=== PATIENT | female | born 1965 | race Caucasian/White ===

== ENCOUNTER 2021-08-15 19:20 | Emergency (ER) | payer OTHER, MEDICAID, SELFPAY ==
[2021-08-15 19:33] VITALS: BP 185/89; PULSE 89; RESP 20; TEMP 36.4; O2SAT 95; BMI 47.5
--- NOTE | 2021-08-15 19:40 | DI.RAD.S_ITS ---
PROCEDURE: XR CHEST 1V INDICATIONS: chest pain TECHNIQUE: One view of the chest was acquired. COMPARISON: None. FINDINGS: Surgical changes and devices: None. Lungs and pleura: Mild patchy bilateral perihilar and basilar airspace opacity.. No pleural effusions or pneumothorax. Mediastinum: Mediastinal contours appear normal. Heart size is normal. Bones and chest wall: No suspicious bony lesions. Overlying soft tissues appear unremarkable. IMPRESSION: Mild atypical pneumonia. Dictated by: Thais Robles M.D. on 08/15/2021 at 20:07 Approved by: Thais Robles M.D. on 08/15/2021 at 20:07
[2021-08-15 19:59] LABS: Add Manual Diff / Slide Review NO; Basophils Absolute Auto 100 /uL (0-100); Eosinophils Absolute Auto 100 /uL (0-450); Eosinophils Percent Auto 1.2 % (2-4); Hematocrit 42.9 % (36-46); Hemoglobin 14.4 g/dL (12.0-16.0); Lymphocytes Absolute Auto 2100 /uL (1100-4500); Mean Corpuscular HGB Conc 33.5 % (30-36); Mean Corpuscular Hemoglobin 28.9 PG (26-34); Mean Corpuscular Volume 86.2 fL (80-100); Monocytes Absolute Auto 500 /uL (0-900); Monocytes Percent Auto 4.6 % (3-14); Neutrophils Absolute Auto 7600 /uL (1500-7000); Neutrophils Percent Auto 73.2 % (50-75); Platelet Count 249 X10^3/uL (150-400); Red Blood Cell Count 4.98 X10^6/uL (4.0-5.2); Red Cell Distribution Width 13.4 % (11.6-14.8); White Blood Cell Count 10.4 X10^3/uL (4.5-11.0)
--- NOTE | 2021-08-15 20:02 | DI.CT.S_ITS ---
PROCEDURE: CT ANGIO CHEST INDICATIONS: chest and back pain eval for TAD TECHNIQUE: After the administration of intravenous contrast, 2.5 mm thick sections acquired from the lung apices to the posterior lung bases. Maximum intensity projection (MIP) oblique sagittal reformats were then acquired parallel to the aortic arch. For radiation dose reduction, the following was used: automated exposure control. COMPARISON: None. FINDINGS: Image quality: Excellent. Aorta and pulmonary arteries: Aorta and great vessels are normal in size. No mural irregularity or contrast extravasation to suggest aortic injury. No filling defects within the pulmonary arteries to indicate pulmonary embolus. Mediastinum: No hematomas. Heart size is normal. No pericardial effusion. No mediastinal or hilar adenopathy by size criteria. Central pulmonary arteries are normal in size. Esophagus is normal in caliber. No hiatal hernia. Lungs and pleura: No acute airspace opacities. No pleural effusions or pneumothorax. Central and peripheral airways are patent and normal in caliber. Bones and chest wall: No axillary adenopathy by size criteria. Thyroid gland is within normal limits . No suspicious bony lesions. No vertebral body compression fractures. Abdomen: Visualized upper abdominal solid organs and bowel loops appear normal. IMPRESSION: 1. No acute process. 2. No pulmonary embolus. 3. No evidence of aortic dissection. Dictated by: Thais Robles M.D. on 08/15/2021 at 20:58 Approved by: Thais Robles M.D. on 08/15/2021 at 21:00
--- NOTE | 2021-08-15 20:02 | ED_ITS ---
HPI - Chest Pain General Chief Complaint: Chest Pain Stated Complaint: Rapid onset Back head and jaw pain Time Seen by Provider: 08/15/21 19:45 Source: patient Mode of arrival: Ambulatory Limitations: no limitations History of Present Illness HPI narrative: 56-year-old female. Does have a history of ?occipital headaches ?here for evaluation back pain that she states radiates to her chest. Pain in her shoulders and around the front to her jaws. Initial was reported as a rapid onset earlier this afternoon however she states that she did have it earlier last evening and then it returned again today. She denies chest pain. States the pain that she is having in her chest is radiating from her back. Does not get worse with touching or movement. No problems with breathing. Has a history of ?occipital headaches but she states this feels a little different than her normal headaches. No skin rashes. No fevers. Has not tried anything for the symptoms prior to arrival. Related Data Home Medications Medication Instructions Recorded Confirmed clotrimazole-betamethasone 1 1 nki TOPICAL #0 02/12/17 01/14/18 %-0.05 % topical cream (Lotrisone) triamcinolone acetonide 0.1 % 1 nik TOPICAL #0 02/12/17 01/14/18 topical cream Allergies Allergy/AdvReac Type Severity Reaction Status Date / Time ibuprofen [IBUPROFEN] Allergy Unknown HIGH DOSE Unverified 09/25/17 12:12 600MG OR GREATER promethazine [PROMETHAZINE] Allergy Unknown Unverified 09/25/17 12:12 Review of Systems Review of Systems ROS Unobtainable: All systems reviewed & are unremarkable except as noted in HPI and below Constitutional Constitutional: Reports as per HPI and Reports system reviewed and no additional complaints, except as documented ENT Ears, Nose, Mouth, and Throat: Reports system reviewed and no additional complaints, except as documented Cardiovascular Cardiovascular: Reports as per HPI and Reports system reviewed and no additional complaints, except as documented Respiratory Respiratory: Reports as per HPI and Reports system reviewed and no additional complaints, except as documented Gastrointestinal Gastrointestinal: Reports system reviewed and no additional complaints, except as documented Musculoskeletal Musculoskeletal: Reports system reviewed and no additional complaints, except as documented and Reports as per HPI Integumentary/Breasts Skin/Breast: Reports system reviewed and no additional complaints, except as documented Neurologic Neurologic: Reports system reviewed and no additional complaints, except as documented Hematologic/Lymphatic On Anticoagulants: No Patient History Medical History Abdominal hernia without obstruction and without gangrene Family History (Updated 08/31/15 @ 00:00 by Conversion Provider) Brother Age: 63 OA (osteoarthritis) Brother Age: 59 Sarcoidosis Hypertension Brother Age: 47 Sarcoidosis Hypertension Father Diabetes mellitus, type II Mother Osteoporosis Sister Age: 62 COPD (chronic obstructive pulmonary disease) RA (rheumatoid arthritis) OA (osteoarthritis) Lung disease Sister Age: 54 Epilepsy Social History Smoking Status: Former smoker alcohol intake: never Smoking Status: Former smoker Exam Initial Vital Signs Initial Vital Signs: Vital Signs Temperature 97.5 F L 08/15/21 19:33 Pulse Rate 89 08/15/21 19:33 Respiratory Rate 20 08/15/21 19:33 Blood Pressure 185/89 H 08/15/21 19:33 Pulse Oximetry 95 08/15/21 19:33 Const General: cooperative, healthy appearing and comfortable HENPR Head: normal to inspection and normocephalic Neck Neck: normal visual inspection Chest Chest: normal inspection of the chest Resp Effort & Inspection: normal respiratory effort Auscultation: clear to auscultation bilaterally Cardio Rate: regular rate Rhythm: regular rhythm GI Inspection: normal to inspection Palpation: soft and No tender Back/Spine/Pelvis Cervical Spine: No cervical spinal tenderness Thoracic/Lumbar Spine: No paraspinal tenderness, No thoracic spinal tenderness and No lumbar spinal tenderness Skin General: no rashes or lesions noted Neuro General: patient alert, patient awake, patient oriented x3 and moves all extremities Speech: speech normal Extrem General: normal to inspection and capillary refill normal Psych Appearance: grossly normal and well kempt Course Orders Ordered: ED Orders 08/15/21 19:40 XR chest 1V Stat EKG-12 Lead Stat 08/15/21 19:49 BNP [NT-proBNP (BNP-Adult 18+)] Stat Complete Blood Count AUTO DIFF Stat Comprehensive Metabolic Panel Stat Lipase Stat Magnesium Stat Partial Thromboplastin Time Stat Prothrombin Time INR Stat Troponin & CK Cardiac Panel Stat 08/15/21 20:02 CT angio chest Stat 08/15/21 20:21 COVID19 -Nasal swab/Pre-Proc Stat 03/01/22 22:04 Troponin I Stat Discontinued Medications Nitroglycerin (Nitroglycerin 0.4 Mg Sl Tab) 0.4 mg SL [id number] PRN PRN Reason: Chest Pain Last Admin: 08/15/21 20:05 Dose: 0.4 mg Documented by: NENA Vital Signs Vital signs: Vital Signs - 8 hr 08/15/21 19:33 08/15/21 22:50 Temperature 97.5 F L Pulse Rate 89 81 Respiratory Rate 20 22 Blood Pressure 185/89 H 159/78 H Pulse Oximetry 95 99 MDM - Chest Pain Lab Data Attestation: I reviewed the patient's lab results. Result diagrams: 08/15/21 19:49 08/15/21 19:49 Labs: Lab Results 08/15/21 08/15/21 08/15/21 Range/Units 19:49 19:49 19:49 WBC 10.4 (4.5-11.0) X10^3/uL RBC 4.98 (4.0-5.2) X10^6/uL Hgb 14.4 (12.0-16.0) g/dL Hct 42.9 (36-46) % MCV 86.2 (80-100) fL MCH 28.9 (26-34) PG MCHC 33.5 (30-36) % RDW 13.4 (11.6-14.8) % Plt Count 249 (150-400) X10^3/uL Neut % (Auto) 73.2 (50-75) % Lymph % (Auto) 20.0 L (25-40) % [place] % (Auto) 4.6 (3-14) % Eos % (Auto) 1.2 L (2-4) % Baso % (Auto) 1.0 (0-2) % Neut # (Auto) 7600 H (2349-2443) /uL Lymph # (Auto) 2100 (3184-6492) /uL [place] # (Auto) 500 (0-900) /uL Eos # (Auto) 100 (0-450) /uL Baso # (Auto) 100 (0-100) /uL PT 12.6 (10.1-12.7) SECONDS INR 1.1 (0.9-1.3) APTT 39 H (26.4-36.2) SECONDS Sodium 138 (137-145) mmol/L Potassium 4.1 (3.4-5.1) mmol/L Chloride 103 (98-107) mmol/L Carbon Dioxide 27 (22-32) mmol/L BUN 13 (7-17) mg/dL Creatinine 0.86 (0.52-1.04) mg/dL Estimated GFR > 60.0 (>60) mL/min BUN/Creatinine Ratio 15.1 (6-22) Glucose 98 (70-100) mg/dL Calcium 9.5 (8.4-10.2) mg/dL Magnesium 2.1 (1.6-2.3) mg/dL Total Bilirubin 0.7 (0.2-1.3) mg/dL AST 31 (14-36) IU/L ALT 29 (<35) IU/L Alkaline Phosphatase 71 (38-126) U/L Total Creatine Kinase 54 (30-135) U/L CK-MB (CK-2) TNP CK-MB (CK-2) Rel Index TNP Troponin I < 0.012 (0.01-0.034) ng/mL NT-Pro-B Natriuret Pep (<125) pg/mL Total Protein 8.8 H (6.3-8.2) g/dL Albumin 4.8 (3.5-5.0) g/dL Globulin 4.0 (1.7-4.1) g/dL Albumin/Globulin Ratio 1.2 (1.0-2.8) Lipase 73 (23-300) U/L SARS-CoV-2 (PCR) (Negative) 08/15/21 08/15/21 08/15/21 Range/Units 19:49 20:21 22:04 WBC (4.5-11.0) X10^3/uL RBC (4.0-5.2) X10^6/uL Hgb (12.0-16.0) g/dL Hct (36-46) % MCV (80-100) fL MCH (26-34) PG MCHC (30-36) % RDW (11.6-14.8) % Plt Count (150-400) X10^3/uL Neut % (Auto) (50-75) % Lymph % (Auto) (25-40) % [place] % (Auto) (3-14) % Eos % (Auto) (2-4) % Baso % (Auto) (0-2) % Neut # (Auto) (9091-1822) /uL Lymph # (Auto) (3046-7101) /uL [place] # (Auto) (0-900) /uL Eos # (Auto) (0-450) /uL Baso # (Auto) (0-100) /uL PT (10.1-12.7) SECONDS INR (0.9-1.3) APTT (26.4-36.2) SECONDS Sodium (137-145) mmol/L Potassium (3.4-5.1) mmol/L Chloride (98-107) mmol/L Carbon Dioxide (22-32) mmol/L BUN (7-17) mg/dL Creatinine (0.52-1.04) mg/dL Estimated GFR (>60) mL/min BUN/Creatinine Ratio (6-22) Glucose (70-100) mg/dL Calcium (8.4-10.2) mg/dL Magnesium (1.6-2.3) mg/dL Total Bilirubin (0.2-1.3) mg/dL AST (14-36) IU/L ALT (<35) IU/L Alkaline Phosphatase (38-126) U/L Total Creatine Kinase (30-135) U/L CK-MB (CK-2) CK-MB (CK-2) Rel Index Troponin I < 0.012 (0.01-0.034) ng/mL NT-Pro-B Natriuret Pep 23 (<125) pg/mL Total Protein (6.3-8.2) g/dL Albumin (3.5-5.0) g/dL Globulin (1.7-4.1) g/dL Albumin/Globulin Ratio (1.0-2.8) Lipase (23-300) U/L SARS-CoV-2 (PCR) Negative (Negative) Imaging Data Chest x-ray: Radiologist's Impression: [address] [address] XRay Report Signed Patient: Marcela Levin MR#: [id number] : 1965 Acct:[id number] Age/Sex: 56 / F Date of Service: 08/15/21 Loc: ED Accession Number: [id number] ?? Procedure: XR chest 1V Ordering Provider: Guy Pisano D.O. PROCEDURE:? XR CHEST 1V ? INDICATIONS:? chest pain ? TECHNIQUE:? One view of the chest was acquired.? ? COMPARISON:? None. ? FINDINGS:? ? Surgical changes and devices:? None.? ? Lungs and pleura:? Mild patchy bilateral perihilar and basilar airspace opacity..? No pleural effusions or pneumothorax.? ? Mediastinum:? Mediastinal contours appear normal.? Heart size is normal.? ? Bones and chest wall:? No suspicious bony lesions.? Overlying soft tissues appear unremarkable.? ? IMPRESSION:? Mild atypical pneumonia. ? ? Dictated by: Thais Robles M.D. on 08/15/2021 at 20:07 ? ? Approved by: Thais Robles M.D. on 08/15/2021 at 20:07 CT scan - chest: Radiologist's Impression: [place] [address] CT Scan Report Signed Patient: Marcela Levin MR#: [id number] : 1965 Acct:[id number] Age/Sex: 56 / F Date of Service: 08/15/21 Loc: ED Accession Number: [id number] ?? Procedure: CT angio chest Ordering Provider: Guy Pisano D.O. PROCEDURE:? CT ANGIO CHEST ? INDICATIONS:? chest and back pain eval for TAD ? TECHNIQUE:? After the administration of intravenous contrast, 2.5 mm thick sections acquired from the lung apices to the posterior lung bases.? Maximum intensity projection (MIP) oblique sagittal reformats were then acquired parallel to the aortic arch.? For radiation dose reduction, the following was used:? automated exposure control.? ? COMPARISON:? None. ? FINDINGS:? Image quality:? Excellent.? ? Aorta and pulmonary arteries:? Aorta and great vessels are normal in size.? No mural irregularity or contrast extravasation to suggest aortic injury.? No filling defects within the pulmonary arteries to indicate pulmonary embolus. ? Mediastinum:? No hematomas.? Heart size is normal.? No pericardial effusion.? No mediastinal or hilar adenopathy by size criteria.? Central pulmonary arteries are normal in size.? Esophagus is normal in caliber.? No hiatal hernia.? ? Lungs and pleura:? No acute airspace opacities.? No pleural effusions or pneumothorax.? Central and peripheral airways are patent and normal in caliber.? ? Bones and chest wall:? No axillary adenopathy by size criteria.? Thyroid gland is within normal limits .? No suspicious bony lesions.? No vertebral body compression fractures.? ? Abdomen:? Visualized upper abdominal solid organs and bowel loops appear normal.? ? IMPRESSION:? 1. No acute process. 2. No pulmonary embolus. 3. No evidence of aortic dissection.? ? ? Dictated by: Thais Robles M.D. on 08/15/2021 at 20:58 ? ? Approved by: Thais Robles M.D. on 08/15/2021 at 21:00? ECG Data Attestation: I personally reviewed and interpreted this ECG as follows: Interpretation: Sinus rhythm Left axis deviation Ventricular rate 88 Normal QRS Normal QTC Nonspecific ST-T changes MDM Narrative Medical decision making narrative: EKG shows nonspecific changes otherwise is unremarkable. Vital signs relatively unremarkable. Initial chest x-ray concern for atypical pneumonia however clinically she does not have pneumonia. CT scan of her chest shows no signs of dissection, aneurysm, pulmonary embolism. Troponin is negative x2 with the 2nd being greater than 6 hours after the onset of her discomfort. Patient denies specific chest discomfort. States this her back that is radiating to the front. Consider other etiologies such as gallbladder pathology or pancreatitis however her exam and labs do not support this. She has no specific neurologic symptoms. She has no skin changes consistent with zoster. Could potentially be musculoskeletal in origin. Could also be atypical headache and she does have ?occipital headaches in the past. She did not want pain medication. COVID test was negative. No indication for antibiotics. I did discuss all this with the patient. She was concerned about her heart and also about potentially having COVID. We discussed our testing for this. Patient safe to be discharged home. She was given return precautions and follow-up instructions. She expressed understanding and agreement. Discharge Plan Departure Patient Disposition: Home Clinical Impression: Back pain, Headache Instructions: DI for Headache Activity Restrictions/Additional Instructions: Recommend that you continue to take all of your medications as directed. Contact your primary doctor as a follow-up and return to the emergency department for any new or worsening symptoms. Prescriptions: No Action triamcinolone acetonide 0.1 % cream 1 nik Topical Qty: 0 0RF clotrimazole-betamethasone [Lotrisone] 15 GM cream 1 nik Topical Qty: 0 0RF
[2021-08-15] MEDS: NITROGLYCERIN 0.4 MG SL TAB SL (20:05)
[2021-08-15 20:10] LABS: INR 1.1 (0.9-1.3); Prothrombin Time 12.6 SECONDS (10.1-12.7)
[2021-08-15 20:13] LABS: PTT Partial Thromboplastin Tim 39 SECONDS (26.4-36.2)
[2021-08-15 20:15] LABS: Alanine Aminotransferase 29 IU/L (<35); Albumin 4.8 g/dL (3.5-5.0); Albumin Globulin Ratio 1.2 (1.0-2.8); Alkaline Phosphatase 71 U/L (38-126); Aspartate Aminotransferase 31 IU/L (14-36); BUN Creatinine Ratio 15.1 (6-22); Bilirubin Total 0.7 mg/dL (0.2-1.3); Blood Urea Nitrogen 13 mg/dL (7-17); Calcium 9.5 mg/dL (8.4-10.2); Carbon Dioxide 27 mmol/L (22-32); Chloride 103 mmol/L (98-107); Creatine Kinase 54 U/L (30-135); Estimated Glomerular Filt Rate > 60.0 mL/min (>60); Glucose 98 mg/dL (70-100); HEMOLYSIS < 15 (0-50); Lipase 73 U/L (23-300); Magnesium 2.1 mg/dL (1.6-2.3); Potassium 4.1 mmol/L (3.4-5.1); Sodium 138 mmol/L (137-145); Total Protein 8.8 g/dL (6.3-8.2)
[2021-08-15 20:24] LABS: NT-proBNP (BNP-Adult 18+) 23 pg/mL (<125)
[2021-08-15 20:26] LABS: Troponin I < 0.012 ng/mL (0.01-0.034)
[2021-08-15 20:56] LABS: COVID19 -Nasal RAPID Negative (Negative)
[2021-08-15 22:32] LABS: Troponin I < 0.012 ng/mL (0.01-0.034)
[2021-08-15 22:50] VITALS: BP 159/78; PULSE 81; RESP 22; O2SAT 99
== END 2021-08-15 22:50 | disposition home or self-care (01) ==
PROVIDERS: Emergency Provider Emergency Medicine
DX: M54.9 Dorsalgia, unspecified (principal); R51.9 Headache, unspecified; Z87.891 Personal history of nicotine dependence; Z20.822 Contact with and (suspected) exposure to COVID-19
CPT/HCPCS: 71045; 71275; 80053; 82550; 83690; 83735; 83880; 84484; 85025; 85610; 85730; 87635; 93005; 99283; 99284; C9803